=== PATIENT | male | born 1970 | race Caucasian/White ===

== ENCOUNTER 2020-11-03 04:52 | Emergency (ER) | payer OTHER ==
[~2020-11-03] VITALS: Ht 182.9 cm; Wt 142.9 kg
[2020-11-03 04:59] VITALS: BP 164/95
[2020-11-03] MEDS ORDERED: LISINOPRIL20 MG PO (05:03)
[2020-11-03] MEDS ORDERED: NAPROSYN500 MG PO (05:38)
== END 2020-11-03 05:54 | disposition home or self-care (01) ==
LOC: ER 04:52
DX: S76.011A Strain of muscle, fascia and tendon of right hip, initial encounter (principal); M25.561 Pain in right knee; I10 Essential (primary) hypertension; Z79.899 Other long term (current) drug therapy; V98.8XXA Other specified transport accidents, initial encounter; Y93.89 Activity, other specified; Y92.89 Other specified places as the place of occurrence of the external cause; Y99.9 Unspecified external cause status